=== PATIENT | female | born 1955 | race Caucasian/White ===

== ENCOUNTER 2023-11-14 09:21 | Outpatient (AMB) | payer OTHER, SELFPAY ==
--- NOTE | 2023-11-14 09:24 | A.OFFVIS_ITS ---
Vital Signs 11/14/23 09:30 Height 5 ft 6 in Weight 133 lb BMI 21.5 BP 126/74 Blood Pressure Location Rt brachial Position Sitting Pulse 72 Intake Visit Reasons: Rectal bleeding Intake Note: This patient presents for Rectal bleeding assessment. Pt c/o; reports intermittent rectal bleeding, reports when has incomplete bm she feels like to rubs against and then there is blood. 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 She apparently had right colon resection for a cecal polyp last September,. She says that for year now, she had been noticing small amounts of blood on wiping once in a while. She said that does not happen every day. She says that this usually happens after she had been walking for long distances. She denies any significant pain. She also admits to some itching around her anus. FORMERLY [facility], 1928–1983 Medical History (Updated 11/14/23 @ 10:05 by Edin Vyas MD) Bleeding hemorrhoids Surgical History Encounter for colonoscopy following colon polyp removal (~09/2022) Social History Unable to assess alcohol history related to: Unknown Patient Tobacco Use Status: Tobacco use Unknown Review of Systems Const Denies chills and Denies fever(s) Card Denies chest pain, Denies dyspnea and Denies dyspnea on exertion Resp Denies cough, Denies dyspnea and Denies dyspnea on exertion GI Reports hematochezia and Denies change in bowel habits Denies hematuria Musc Denies back pain and Denies limited range of motion Neuro Denies focal weakness and Denies convulsions Psych Denies depression and Denies mood swings Physical Exam Vital Signs: Last Vital Signs Pulse 72 11/14/23 09:30 BP 126/74 11/14/23 09:30 BMI result Body Mass Index 21.5 Const General: comfortable and no acute distress Orientation/consciousness: patient oriented x3 Neck Neck: Yes no lymphadenopathy Resp Auscultation: clear to auscultation bilaterally Cardio Rhythm: regular rhythm GI Other: Rectal exam shows small external hemorrhoids on the posterior anal verge Palpation (GI): Soft to palpation, nontender and no guarding Neuro General: patient oriented x3 Office Procedures Anoscopy She was in augie-knife position. The anoscope was gently inserted. A full examination of the anal canal was done. There were no large internal hemorrhoids. There were no lesions in the anal canal. There was no fissure ulceration. There was no induration on digital exam. There was this small external hemorrhoid posteriorly which appears to be a erythematous and seems to be the likely source of her outlet bleeding. [id number] Assessment & Plan Assessment & Plan (1) Bleeding hemorrhoids: Code(s): K64.9 - Unspecified hemorrhoids Category: Medical Plan: It appears that her rectal bleeding is from an outlet source with the external hemorrhoids. I assured her about this finding at this time. There was no other benefit finding on anoscopy. Furthermore, she just had a colonoscopy last year so I would not recommend repeating this I told her that if she has problematic hemorrhoids with severe symptoms, 1 option is to proceed with hemorrhoidectomy She can follow up with me on a p.r.n. basis. Coding Level of Care Code New Pt Level 3 (70298) Diagnoses Bleeding hemorrhoids K64.9 CPT Codes Details - CPT: 14908-Mhqamexj ([id number])
[2023-11-14 09:30] VITALS: BP 126/74; PULSE 72; BMI 21.5
== END 2023-11-14 10:06 | disposition home or self-care (01) ==
PROVIDERS: PCP Internal Medicine; Visit Provider Surgery
DX: K64.9 Unspecified hemorrhoids (principal)
CPT/HCPCS: 46600; 99203

== ENCOUNTER → 2023-11-14 09:21 | Outpatient (BNVA) | payer OTHER, SELFPAY | PROVIDERS: PCP Internal Medicine; Visit Provider Surgery | DX: K64.4 Residual hemorrhoidal skin tags (principal) | CPT/HCPCS: 46600 ==